=== PATIENT | female | born 1985 | race Caucasian/White ===

== ENCOUNTER → 2021-04-09 09:03 | Outpatient (BNVA) | payer OTHER, SELFPAY | PROVIDERS: Family Provider Family Medicine; Visit Provider Specialist | DX: R20.0 Anesthesia of skin (principal); R20.2 Paresthesia of skin; G56.01 Carpal tunnel syndrome, right upper limb | CPT/HCPCS: 95910 ==

== ENCOUNTER 2021-12-03 15:09 | Outpatient (CLI) | payer OTHER, SELFPAY ==
[2021-12-03 15:22] VITALS: BP 140/86; PULSE 96; RESP 18; TEMP 36.6; O2SAT 98; BMI 39.3
[2021-12-03 17:08] VITALS: BP 108/74; PULSE 75; RESP 14; TEMP 36.9; O2SAT 93
== END 2021-12-03 15:10 | disposition home or self-care (01) ==
PROVIDERS: PCP Nurse Practitioner Family; Visit Provider Nurse Practitioner Family
DX: U07.1 COVID-19 (principal)
CPT/HCPCS: 96365

== ENCOUNTER → 2022-07-08 16:05 | Outpatient (BNVA) | payer OTHER, SELFPAY | PROVIDERS: PCP Nurse Practitioner Family; Visit Provider Nurse Practitioner Family | DX: N91.2 Amenorrhea, unspecified (principal) | CPT/HCPCS: 80048; 82670; 83001; 84146; 84403; 84443; 84702; 84703 ==

== ENCOUNTER → 2022-09-02 15:33 | Outpatient (BNVA) | payer OTHER, SELFPAY | PROVIDERS: PCP Nurse Practitioner Family; Visit Provider Nurse Practitioner Women's Health | DX: Z01.419 Encounter for gynecological examination (general) (routine) without abnormal findings (principal); Z12.4 Encounter for screening for malignant neoplasm of cervix; N92.6 Irregular menstruation, unspecified | CPT/HCPCS: 87624 ==

== ENCOUNTER → 2022-09-06 16:00 | Outpatient (BNVA) | payer OTHER, SELFPAY | PROVIDERS: PCP Nurse Practitioner Family; Visit Provider Nurse Practitioner Women's Health | DX: N92.1 Excessive and frequent menstruation with irregular cycle (principal) | CPT/HCPCS: 76830 ==

== ENCOUNTER → 2022-11-26 10:06 | Outpatient (BNVA) | payer OTHER, SELFPAY | PROVIDERS: PCP Nurse Practitioner Family; Visit Provider Nurse Practitioner Women's Health | DX: Z30.431 Encounter for routine checking of intrauterine contraceptive device (principal) | CPT/HCPCS: 76830; 81000 ==

== ENCOUNTER → 2023-09-09 10:00 | Outpatient (BNVA) | payer OTHER, SELFPAY | PROVIDERS: Visit Provider Nurse Practitioner Women's Health | DX: Z30.9 Encounter for contraceptive management, unspecified (principal); Z01.419 Encounter for gynecological examination (general) (routine) without abnormal findings; Z30.431 Encounter for routine checking of intrauterine contraceptive device | CPT/HCPCS: 87624 ==

== ENCOUNTER 2023-11-09 08:16 | Outpatient (CLI) | payer OTHER, SELFPAY ==
--- NOTE | 2023-11-09 08:46 | MM_ITS ---
WS: [email or web address] BILATERAL SCREENING DIGITAL TOMOSYNTHESIS MAMMOGRAM WITH CAD HISTORY: Z12.31 - Encounter for screening mammogram for malignant ... COMPARISON: None available. Bilateral CC and MLO views with tomosynthesis and synthetic mammography submitted. Computer aided det ection analyzed. Breast composition: There are scattered areas of fibroglandular density. No suspicious masses, microc alcifications or architectural distortion. Intramammary lymph nodes. IMPRESSION: MM/[place] [id number] BI-RADS: 2-Benign FOLLOW UP: 1 Year Follow-up
== END 2023-11-09 08:17 | disposition home or self-care (01) ==
LOC: RAD 08:17
PROVIDERS: Visit Provider Nurse Practitioner Women's Health
DX: Z12.31 Encounter for screening mammogram for malignant neoplasm of breast (principal)
CPT/HCPCS: 77063; 77067

== ENCOUNTER → 2023-12-22 08:52 | Outpatient (BNVA) | payer OTHER, SELFPAY | PROVIDERS: Visit Provider Nurse Practitioner Family | DX: R05.9 Cough, unspecified (principal); B34.9 Viral infection, unspecified; R68.89 Other general symptoms and signs; J11.1 Influenza due to unidentified influenza virus with other respiratory manifestations | CPT/HCPCS: 87804 ==

== ENCOUNTER 2024-11-12 09:29 | Outpatient (CLI) | payer OTHER, SELFPAY ==
--- NOTE | 2024-11-12 09:30 | MM_ITS ---
WS: [email or web address] SCREENING DIGITAL BREAST TOMOSYNTHESIS MAMMOGRAM WITH CAD HISTORY: Z12.31 - Encounter for screening mammogram for malignant ... COMPARISON: 11/09/2023 Bilateral CC and MLO with tomosynthesis and synthetic mammography submitted. Computer aided detection analyzed. Breast composition: There are scattered areas of fibroglandular density. New high density mass measur ing 9 x 7 x 4 mm in the central LEFT breast just lateral to the nipple line and below the nipple gonzalez mated at 3-4 o'clock. There are a few additional nodules which are stable and benign lymph nodes. MM/MM scr BI tomosynthesis [id number] IMPRESSION: BI-RADS: 0 - Incomplete: Need additional imaging evaluation. FOLLOW UP: Need Additional Imaging Recommendation: LEFT breast ultrasound, lateral LEFT breast near 3-4 o'clock.
== END 2024-11-12 09:30 | disposition home or self-care (01) ==
LOC: RAD 09:30
PROVIDERS: PCP Family Medicine; Visit Provider Nurse Practitioner Women's Health
DX: Z12.31 Encounter for screening mammogram for malignant neoplasm of breast (principal); R92.323 Mammographic fibroglandular density, bilateral breasts; N63.23 Unspecified lump in the left breast, lower outer quadrant
CPT/HCPCS: 77063; 77067

== ENCOUNTER 2024-12-10 08:58 | Outpatient (CLI) | payer OTHER, SELFPAY ==
--- NOTE | 2024-12-10 09:30 | US_ITS ---
WS: [email or web address] ULTRASOUND LEFT BREAST, limited HISTORY: High density mass central LEFT breast just lateral to the nipple line. COMPARISON: 11/12/2024, 11/09/2023 TECHNIQUE: 2-D and Doppler. LEFT breast at 4:00, 5 cm from the nipple is a benign lymph node measuring 6 x 7 x 5 mm. Normal fatty hilum and normal cortex. No additional abnormality noted in the LEFT breast. US/US breast LT limited* [id number] IMPRESSION: BI-RADS: 3- Probably Benign FOLLOW-UP: 6 Month Follow-up Recommend diagnostic LEFT mammogram follow-up and ultrasound in 6 months. There is a benign-appearing lymph node noted on ultrasound that corresponds in size and shape to the mammographic abnormality. The mammographic abnormality is of h igh density and round without a discrete fatty hilum. As the mammographic and u ltrasound findings are not completely concordant recommend diagnostic mammogram and ultrasound follow-up in 6 months.
== END 2024-12-10 08:59 | disposition home or self-care (01) ==
PROVIDERS: PCP Family Medicine; Visit Provider Nurse Practitioner Women's Health
DX: R92.8 Other abnormal and inconclusive findings on diagnostic imaging of breast (principal); R59.0 Localized enlarged lymph nodes
CPT/HCPCS: 76642

== ENCOUNTER 2025-06-10 08:16 | Outpatient (CLI) | payer OTHER, SELFPAY ==
--- NOTE | 2025-06-10 08:30 | MM_ITS ---
WS: [email or web address] Diagnostic LEFT MAMMOGRAM WITH DIGITAL BREAST TOMOSYNTHESIS. LEFT BREAST ULTRASOUND, LIMITED. HISTORY: 6-month follow-up. COMPARISON: 11/12/2024, 11/09/2023 LEFT breast in CC, MLO projections and true ML submitted with digital breast tomosynthesis and SM. Spot compression LEFT CC and MLO. Breast composition: There are scattered areas of fibroglandular density. Reidentified is a mass in the central and inferior LEFT breast near 3-4 o'clock. Mass has decreased in size since the prior study of 11/12/2024, now measuring 3 x 4 x 5 mm. Mass has also decreased in density. There are a few benign lymph nodes in the superior LEFT breast. LEFT breast ultrasound, limited. Reidentified is the lymph node in the LEFT breast at 4:00 measuring 6 x 7 x 5 mm. No change in size by ultrasound. This is a benign appearing lymph node. No additional abnormality noted. MM/MM diag LT tomosynthesis [id number] IMPRESSION: BI-RADS: 2 - Benign. FOLLOW UP: 1 Year Follow-up Stable lymph node LEFT breast.
--- NOTE | 2025-06-10 09:00 | US_ITS ---
WS: [email or web address] Diagnostic LEFT MAMMOGRAM WITH DIGITAL BREAST TOMOSYNTHESIS. LEFT BREAST ULTRASOUND, LIMITED. HISTORY: 6-month follow-up. COMPARISON: 11/12/2024, 11/09/2023 LEFT breast in CC, MLO projections and true ML submitted with digital breast tomosynthesis and SM. Spot compression LEFT CC and MLO. Breast composition: There are scattered areas of fibroglandular density. Reidentified is a mass in the central and inferior LEFT breast near 3-4 o'clock. Mass has decreased in size since the prior study of 11/12/2024, now measuring 3 x 4 x 5 mm. Mass has also decreased in density. There are a few benign lymph nodes in the superior LEFT breast. LEFT breast ultrasound, limited. Reidentified is the lymph node in the LEFT breast at 4:00 measuring 6 x 7 x 5 mm. No change in size by ultrasound. This is a benign appearing lymph node. No additional abnormality noted. US/US breast LT limited* [id number] IMPRESSION: BI-RADS: 2 - Benign. FOLLOW UP: 1 Year Follow-up Stable lymph node LEFT breast.
== END 2025-06-10 08:17 | disposition home or self-care (01) ==
PROVIDERS: PCP Family Medicine; Visit Provider Nurse Practitioner Women's Health
DX: R92.8 Other abnormal and inconclusive findings on diagnostic imaging of breast (principal)
CPT/HCPCS: 76642; 77061; G0279

== ENCOUNTER → 2025-07-09 12:04 | Outpatient (BNVA) | payer OTHER, SELFPAY | PROVIDERS: PCP Family Medicine; Visit Provider Nurse Practitioner Women's Health | DX: N92.6 Irregular menstruation, unspecified (principal); R73.03 Prediabetes; I10 Essential (primary) hypertension | CPT/HCPCS: 84403 ==